=== PATIENT | male | born 1960 | race Caucasian/White ===

== ENCOUNTER 2023-10-31 18:33 | Emergency (ER) | payer OTHER, SELFPAY ==
[2023-10-31 18:37] VITALS: BP 164/86; PULSE 81; RESP 16; TEMP 36.9; O2SAT 97; BMI 27.2
--- NOTE | 2023-10-31 19:35 | ED.SKABFB1 ---
HPI - Skin/Abscess/Foreign Bdy General Chief complaint: Skin/Abscess/Foreign Body Stated complaint: laceration finger Time Seen by Provider: 10/31/23 19:04 Source: patient Mode of arrival: walk-in History of Present Illness HPI narrative: Patient is a 63-year-old male who presents to the emergency department for the evaluation of a laceration to the left index finger. He is right-hand dominant. Tetanus is up-to-date. He states that he was using a pocket knife to prep a log splitter for tomorrow when he injured the dorsal medial aspect of the left index finger. Bleeding is well-controlled. He had no other associated injuries. He went to urgent care prior to arrival but was told they did not have big enough sutures to take care of the laceration to the finger. Related Data Home Medications Medication Instructions Recorded Confirmed meloxicam 7.5 mg tablet 7.5 mg PO QAM 10/31/23 10/31/23 rosuvastatin 5 mg tablet 5 mg PO DAILY 10/31/23 10/31/23 Allergies Allergy/AdvReac Type Severity Reaction Status Date / Time No Known Drug Allergies Allergy Verified 10/31/23 18:40 Review of Systems ROS Constitutional Denies: fever or chills Ears, nose, mouth, and throat Denies: throat pain Cardiovascular Denies: chest pain Respiratory Denies: shortness of breath or cough Gastrointestinal Denies: nausea or vomiting Genitourinary Denies: painful urination Musculoskeletal Reports: extremity pain; Denies: back pain or neck pain Integumentary/Breast Denies: rash Hematologic/Lymphatic Denies: easy bruising or easy bleeding Exam Narrative Exam Narrative: Gen.: Awake, alert, in no distress Head: Normocephalic, atraumatic ENT: Moist mucous membranes Respiratory: No respiratory distress Extremities: Moves extremities equally, Normal flexion and extension at the DIP and PIP joints with a 3 cm laceration of the dorsal medial aspect, No evidence of tendon deficit. No active bleeding. Psych: Normal mood and affect Neuro: No focal neuro deficit Skin: Warm, dry Constitutional Vital Signs, click to edit/add: Last Vital Signs Temp 98.4 F 10/31/23 18:37 Pulse 81 10/31/23 18:37 Resp 16 10/31/23 18:37 BP 164/86 H 10/31/23 18:37 Pulse Ox 97 10/31/23 18:37 O2 Del Method Room Air 10/31/23 18:37 Course Vital Signs Vital signs: Vital Signs Temperature 98.4 F 10/31/23 18:37 Pulse Rate 81 10/31/23 18:37 Respiratory Rate 16 10/31/23 18:37 Blood Pressure 164/86 H 10/31/23 18:37 Pulse Oximetry 97 10/31/23 18:37 Oxygen Delivery Method Room Air 10/31/23 18:37 Temperature 98.4 F 10/31/23 18:37 Pulse Rate 81 10/31/23 18:37 Respiratory Rate 16 10/31/23 18:37 Blood Pressure 164/86 H 10/31/23 18:37 Pulse Oximetry 97 10/31/23 18:37 Oxygen Delivery Method Room Air 10/31/23 18:37 MDM - Skin/Abscess/Foreign Bdy MDM Narrative Medical decision making narrative: Laceration repaired without difficulty. Please see procedure note for details. Follow-up with PCP in 7 to 10 days for suture removal and return to the emergency department if symptoms change or worsen. Laceration repair: Done under sterile conditions. The use of Shur-Clens prep the area. Local injection with lidocaine 1% was used, approximately 3 cc. The wound was irrigated copiously with normal saline. The wound was explored there was no evidence of foreign material. The laceration was approximated with 4-0 nylon. 6 simple interrupted sutures were placed. Patient tolerated the procedure well. The patient was neurovascularly intact post. the patient had bacitracin applied to the laceration and a dry sterile dressing was place. The patient will need to follow-up in the next 7-10 days for removal Medical Records Attestation: I reviewed the patient's medical records. Discharge Plan Discharge Chief Complaint: Skin/Abscess/Foreign Body Clinical Impression: Finger laceration Patient Disposition: Home, Self-Care Time of Disposition Decision: 19:34 Condition: Good Prescriptions / Home Meds: No Action meloxicam 7.5 mg tablet 7.5 mg PO QAM rosuvastatin 5 mg tablet 5 mg PO DAILY Instructions: Finger Laceration (ED) Additional Instructions: Sutures removed in 7 to 10 days with your PCP Stand Alone Forms: Portal Instructions Referrals: Physician,Non-Staff, MD [Primary Care Provider] - 1 week
[2023-10-31] MEDS: BACITRACIN 0.9 GM PACKET 1 PACKET TOPICAL (19:43)
[2023-10-31] MEDS: LIDOCAINE HCL 1% 100 MG/10 ML MDV INJ (19:46)
== END 2023-10-31 19:47 | disposition home or self-care (01) ==
PROVIDERS: Emergency Provider Emergency Medicine
DX: S61.211A Laceration without foreign body of left index finger without damage to nail, initial encounter (principal); W26.0XXA Contact with knife, initial encounter; Z79.899 Other long term (current) drug therapy
CPT/HCPCS: 12002; 99284